=== PATIENT | female | born 1980 | race Caucasian/White ===

== ENCOUNTER 2019-01-17 15:55 | Outpatient (CLI) | payer OTHER | END 2019-01-17 17:37 | disposition home or self-care (01) | LOC: OBT 15:55 → L-D 15:56 → OBT 17:37 | DX: O26.892 Other specified pregnancy related conditions, second trimester (principal); L29.9 Pruritus, unspecified; Z3A.27 27 weeks gestation of pregnancy | CPT/HCPCS: Z7500 ==

== ENCOUNTER 2019-02-28 18:52 | Outpatient (CLI) | payer OTHER | END 2019-02-28 20:56 | disposition home or self-care (01) | LOC: OBT 18:52 → L-D 18:52 → OBT 20:56 | DX: O26.893 Other specified pregnancy related conditions, third trimester (principal); L29.9 Pruritus, unspecified; O09.523 Supervision of elderly multigravida, third trimester; Z3A.33 33 weeks gestation of pregnancy | CPT/HCPCS: Z7500 ==